=== PATIENT | female | born 1960 | race Caucasian/White ===

== ENCOUNTER → 2016-12-07 | Outpatient (CLI) | payer BC ==
[~2016-12-07] MED LIST: BIOT300T2 PO; HYDR25TA6 PO; LACT1CAP35 PO; MAGN84TA6 PO
== END | disposition home or self-care (01) ==
LOC: ROC 09:59
PROVIDERS: ATTEND Radiology Radiation Oncology
DX: Z08 Encounter for follow-up examination after completed treatment for malignant neoplasm (principal); I89.0 Lymphedema, not elsewhere classified; M79.89 Other specified soft tissue disorders; Z85.818 Personal history of malignant neoplasm of other sites of lip, oral cavity, and pharynx; Z92.3 Personal history of irradiation; Z92.21 Personal history of antineoplastic chemotherapy; Z98.890 Other specified postprocedural states
CPT/HCPCS: 99213; G0463